=== PATIENT | female | born 1965 | race Hispanic/Latino ===

== ENCOUNTER 2022-10-01 19:08 | Emergency (ER) | payer OTHER ==
[~2022-10-01] VITALS: Ht 149.9 cm; Wt 54.9 kg
[2022-10-01 19:35] VITALS: BP 153/67; PULSE 82; RESP 18; O2SAT 98
== END 2022-10-01 20:32 | disposition home or self-care (01) ==
LOC: EDH 19:08
DX: M54.9 Dorsalgia, unspecified (principal); G43.909 Migraine, unspecified, not intractable, without status migrainosus; Z04.9 Encounter for examination and observation for unspecified reason; Z98.890 Other specified postprocedural states
CPT/HCPCS: 99281